=== PATIENT | male | born 1960 ===

== ENCOUNTER → 2017-07-21 | Outpatient (CLI) | payer OTHER | END | disposition home or self-care (01) | LOC: LAB EV 18:11 → LAB SHORT 18:11 | DX: S81.802A Unspecified open wound, left lower leg, initial encounter (principal) | CPT/HCPCS: 87070; 87075; 87205 ==

== ENCOUNTER 2017-08-05 12:10 | Day surgery (SDC) | payer OTHER | END 2017-08-05 15:47 | disposition home or self-care (01) | LOC: WOUND 12:10 | PROC: 0HBLXZZ Excision of Left Lower Leg Skin, External Approach (ICD-10-PCS; principal; 2017-08-05) | DX: S81.802A Unspecified open wound, left lower leg, initial encounter (principal); S81.812A Laceration without foreign body, left lower leg, initial encounter | CPT/HCPCS: G0463 ==

== ENCOUNTER 2017-08-12 00:08 | Day surgery (SDC) | payer OTHER | END 2017-08-12 23:06 | disposition home or self-care (01) | LOC: WOUND 00:08 | PROC: 0HBLXZZ Excision of Left Lower Leg Skin, External Approach (ICD-10-PCS; principal; 2017-08-12) | DX: S81.802A Unspecified open wound, left lower leg, initial encounter (principal); S81.812A Laceration without foreign body, left lower leg, initial encounter | CPT/HCPCS: G0463 ==